=== PATIENT | male | born 1955 | race Two or more races ===

== ENCOUNTER 2017-06-01 22:14 | Emergency (ER) | payer OTHER ==
[~2017-06-01] VITALS: Ht 182.9 cm; Wt 106.6 kg
[2017-06-01 22:35] VITALS: BP 148/79
[2017-06-01] MEDS ORDERED: HYDROmorphone 1mg/ml Carpuject IVP ONE (22:45)
[2017-06-01] MEDS ORDERED: HYDROCODON-ACE1 EA15 ORAL (23:40)
[2017-06-01] MEDS ORDERED: PREDNISONE20 MG ORAL (23:40)
--- NOTE | 2017-06-01 23:41 | Emergency Room Report ---
History of Present Illness General Chief Complaint: Lower Back Pain or Injury Source: Patient, EMS Present Illness HPI This is a 61-year-old male with no past medical history. He presents with chief complaint of back pain. Pain radiating down his right leg. Onset for last 10 days. No trauma. Pain is now severe 10 out of 10. Hard time walking. No incontinence of bowel or urine. Lying flat does make it a little bit better. Walking or sitting for long periods time makes it worse. No anesthesia. No redness, never had this before. Allergies: Coded Allergies: No Known Allergies (Unverified , 06/01/17) Patient History Past Medical History: see triage record, old chart reviewed Past Surgical History: none Pertinent Family History: none Social History: Denies: smoking Immunizations: other Reviewed Nursing Documentation: PMH: Agreed, PSxH: Agreed Nursing Documentation-PMH Past Medical History: No Stated History Review of Systems Eye: Denies: eye pain, blurred vision ENT: Denies: ear pain, nose congestion, throat swelling Respiratory: Denies: cough, shortness of breath Cardiovascular: Denies: chest pain, palpitations Gastrointestinal: Denies: abdominal pain, diarrhea, nausea, vomiting Musculoskeletal: Reports: back pain, Denies: joint pain Skin: Denies: rash Neurological: Denies: headache, numbness Endocrine: Denies: increased thirst, increased urine Hematologic/Lymphatic: Denies: easy bruising All Other Systems: negative except mentioned in HPI Physical Exam Vital Signs Date Time Temp Pulse Resp B/P (MAP) Pulse Ox O2 Delivery O2 Flow Rate FiO2 06/01/17 22:10 97.9 76 18 162/80 97 Room Air 97.9 vitals with high blood pressure Sp02 EP Interpretation: reviewed, normal General Appearance: well appearing, no apparent distress, alert Head: normocephalic, atraumatic Eyes: bilateral eye PERRL, bilateral eye EOMI ENT: hearing grossly normal, normal pharynx Neck: full range of motion, supple, no meningismus Respiratory: chest non-tender, lungs clear, normal breath sounds Cardiovascular #1: regular rate, rhythm, no murmur Gastrointestinal: normal bowel sounds, non tender, no mass, no organomegaly, no bruit, non-distended Musculoskeletal: back normal - Tenderness to the right lower lumbar area, normal range of motion Psychiatric: mood/affect normal Skin: warm/dry Medical Decision Making Diagnostic Impression: Primary Impression: Degenerative disc disease, lumbar Additional Impression: Sciatica of right side ER Course Patient with degenerative disease of the lumbar area with sciatica. No evidence of cauda equina syndrome, spinal epidural abscess or neoplastic process. Patient felt better after medication. We'll discharge home. I gave him a copy of his CT scan report. CT/MRI/US Diagnostic Results CT/MRI/US Diagnostic Results : Imaging Test Ordered: CT lumbar spine Impression Read by radiologist. Multiple level disc degenerative changes. Most prominent at L4-L5 and L5-S1 level with central canal and normal foraminal stenosis. Last Vital Signs Date Time Temp Pulse Resp B/P (MAP) Pulse Ox O2 Delivery O2 Flow Rate FiO2 06/01/17 22:50 97.9 06/01/17 22:10 76 18 162/80 97 Room Air Status: improved Disposition: HOME, SELF-CARE Condition: Stable Scripts Prednisone* (PREDNISONE*) 20 Mg Tablet 60 MG ORAL DAILY, #15 TAB Prov: RIDGE RYAN M.D. 06/01/17 Hydrocodone/Acetaminophen 5-325* (HYDROCODONE/ACETAMINOPHEN 5-325*) 1 Each Tablet 1 TAB ORAL Q6H Y for For Pain, #30 TAB 0 Refills Prov: RIDGE RYAN M.D. 06/01/17 Additional Instructions: Follow-up with your doctor within a week. Bring the CT scan report. You may need an MRI. You will benefit from referral for physical therapy. Return if symptom worsen. RIDGE RYAN M.D. Jun 01, 2017 23:41
[2017-06-01] MEDS ORDERED: Solu-MEDROL 125mg Inj IVP ONE (23:45)
[2017-06-01] MEDS ORDERED: Ketorolac 30mg Inj IV ONE (23:45)
[2017-06-01 23:50] VITALS: BP 138/80
[2017-06-02] VITALS: BP 138/80
--- NOTE | 2017-06-02 10:07 | Diagnostic Imaging Report ---
Indications: Back pain Technique: Spiral acquisitions obtained through the lumbar spine. Multiplanar reconstructions were generated. No IV contrast utilized. Total dose length product 748.85 mGycm. CTDIvol(s) 19.89 mGy. Dose reduction achieved using automated exposure control Comparison: none Findings: No acute fractures. No dislocations. Bony alignment is normal. Vertebral body heights are preserved. The disc spaces are preserved. There is multilevel facet arthrosis At C3-4, there is circumferential annular bulge. This, in combination with short pedicles, results in [id number] spinal stenosis. No neural foraminal stenosis. At C4-5, circumferential annular bulge results in borderline narrowing of the spinal canal. No significant neural foraminal stenosis. At L5-S1, there is broad-based circumferential annular bulge which does not significantly narrow the spinal canal. The neural foramina are preserved. At the remaining disc levels, no significant disc bulge or protrusion, spinal stenosis, or neural foraminal stenosis. The included extraspinal soft tissues are unremarkable Impression: No acute bony trauma Multilevel degenerative changes as detailed above. This agrees with the preliminary interpretation provided overnight by [facility]eradiology service. The CT scanner at [facility] is accredited by the [employer] and the scans are performed using protocols designed to limit radiation exposure to as low as reasonably achievable to attain images of sufficient resolution adequate for diagnostic evaluation.
== END 2017-06-02 | disposition home or self-care (01) ==
LOC: EDBD 22:14 → EMR 22:30
DX: M51.16 Intervertebral disc disorders with radiculopathy, lumbar region (principal)
CPT/HCPCS: 72131; 96374; 96375; 99284; J1170; J1885; J2405; J2930